=== PATIENT | female | born 1995 | race African-American/Black ===

== ENCOUNTER 2020-02-27 05:43 | Emergency (ER) | payer SELFPAY ==
[~2020-02-27] VITALS: Ht 182.9 cm; Wt 150.0 kg
[2020-02-27 05:48] VITALS: BP 162/75
== END 2020-02-27 06:16 | disposition left against medical advice (07) ==
LOC: ER 05:43
DX: Z53.21 Procedure and treatment not carried out due to patient leaving prior to being seen by health care provider (principal)